=== PATIENT | female | born 1950 | race Caucasian/White ===

== ENCOUNTER 2021-07-02 01:12 | Day surgery (SDC) | payer MEDICARE, SELFPAY ==
[2021-06-29 13:14] VITALS: BMI 21.4
--- NOTE | 2021-06-30 17:17 | PM.HPGS ---
History of Present Illness History of Present Illness Consent: Risks, benefits, and alternatives have been discussed and questions answered. Patient agrees to proceed with procedure. Chief complaint: neoplasm screening Narrative: Dasia Jamil is a 71 year old female referred for colon cancer screening Review of Systems Review of Systems: All systems reviewed & are unremarkable except as noted in HPI and below PMFSH Surgical History Surgical History H/O: hysterectomy Family History Family History Father Cerebrovascular accident, Onset Age: 69 Patient's father is Mother Family history of lung cancer, Onset Age: 75 Grandparent Family history of malignant neoplasm of breast Sibling Family history of malignant neoplasm of ovary Family history of malignant neoplasm of uterus, Onset Age: 60 Social History Social History Smoking packs per day: 1 Smoking cigarettes per day: 20.0 Years smoked: 20 Smoking pack-years: 20.00 Smoking status: Former smoker Tobacco type: cigarettes Second hand tobacco smoke exposure: No Smoking end date: 04/18/86 Alcohol intake: current Drinks per week: 7 Substance use: never Substance use type: does not use Living arrangements: with family Spiritual care concerns: No Meds Home Medications and Allergies Home Medications Medication Instructions Recorded Confirmed Type ascorbic acid (vitamin C) 100 mg 100 mg PO DAILY 08/09/19 07/02/21 History tablet aspirin 81 mg tablet,delayed 81 mg PO DAILY 08/09/19 07/02/21 History release multivit with 1 tablet PO DAILY 08/09/19 07/02/21 History dovovyiq-geku-RU-lutein 8 mg iron-400 mcg-300 mcg tablet quetiapine 25 mg tablet 25 mg PO .hs #90 tablet 12/25/20 07/02/21 Rx bupropion HCl 300 mg 24 hr tablet, 300 mg PO QAM #90 tablet 04/16/21 07/02/21 Rx extended release sertraline 50 mg tablet 50 mg PO DAILY #90 tablet 06/01/21 07/02/21 Rx levothyroxine 112 mcg tablet 112 mcg PO DAILY #90 tablet 06/26/21 07/02/21 Rx Allergies Allergy/AdvReac Type Severity Reaction Status Date / Time Sulfa (Sulfonamide Allergy Mild Unknown Verified 07/02/21 06:21 Antibiotics) Exam Resp: Auscultation: clear to auscultation bilaterally Cardio: Rate: regular rate Rhythm: regular rhythm GI: GI Palp: Yes Soft to palpation and No Tenderness to palpation present (GI) Assessment and Plan Assessment and plan (1) Colon cancer screening: Code(s): Z12.11 - Encounter for screening for malignant neoplasm of colon Status: Acute Assessment and Plan: Colonoscopy with possible biopsy or polypectomy or cautery or injection of substances.
[2021-07-02 06:23] VITALS: BMI 20.9
[2021-07-02] MEDS: LACTATED RINGERS 1,000 ML 150 ML IV CONT (06:36)
[2021-07-02 06:57] VITALS: BP 102/78; PULSE 73; RESP 20; O2SAT 97
--- NOTE | 2021-07-02 06:57 | WPDANESEPPF ---
Anes - Initial Pre Proc Eval Procedure: Operation Date: 07/02/21 07:30 Proposed Procedures p Screening Colonoscopy - Rhett Cotto MD Date/Time: 07/02/21 06:57 Surgeon: Rhett Cotto MD Pre Op Diagnosis: neoplasm screening Patient Data Age: 71 Gender: F Height: 1.65 m Weight: 57.1 kg Allergies Allergy/AdvReac Type Severity Reaction Status Date / Time Sulfa (Sulfonamide Allergy Mild Unknown Verified 07/02/21 06:21 Antibiotics) Home Medications Medication Instructions Recorded Confirmed Type ascorbic acid (vitamin C) 100 mg 100 mg PO DAILY 08/09/19 07/02/21 History tablet aspirin 81 mg tablet,delayed 81 mg PO DAILY 08/09/19 07/02/21 History release multivit with 1 tablet PO DAILY 08/09/19 07/02/21 History hdkevujo-xeei-ZV-lutein 8 mg iron-400 mcg-300 mcg tablet quetiapine 25 mg tablet 25 mg PO .hs #90 tablet 12/25/20 07/02/21 Rx bupropion HCl 300 mg 24 hr tablet, 300 mg PO QAM #90 tablet 04/16/21 07/02/21 Rx extended release sertraline 50 mg tablet 50 mg PO DAILY #90 tablet 06/01/21 07/02/21 Rx levothyroxine 112 mcg tablet 112 mcg PO DAILY #90 tablet 06/26/21 07/02/21 Rx Patient hx anesthesia problems: none Family hx anesthesia problems: none Results Review: All pre-operative results and documents have been reviewed as part of the pre-operative evaluation. [facility] Surgical History Surgical History (Updated 07/02/21 @ 07:00 by Eliazar Johnson MD) H/O: hysterectomy Family History Family History Father Cerebrovascular accident, Onset Age: 69 Patient's father is Mother Family history of lung cancer, Onset Age: 75 Grandparent Family history of malignant neoplasm of breast Sibling Family history of malignant neoplasm of ovary Family history of malignant neoplasm of uterus, Onset Age: 60 Social History Social History Smoking packs per day: 1 Smoking cigarettes per day: 20.0 Years smoked: 20 Smoking pack-years: 20.00 Smoking status: Former smoker Tobacco type: cigarettes Second hand tobacco smoke exposure: No Smoking end date: 04/18/86 Alcohol intake: current Drinks per week: 7 Substance use: never Substance use type: does not use Living arrangements: with family Spiritual care concerns: No Anes - Eval Final PreProcedure Day of Procedure 07/02/21 06:57 Patient weight: normal Heart: regular rate and rhythm Lungs: clear to auscultation Airway: Mallampati scale class II Neurological: alert and oriented Last oral intake: >/= 8 hours ASA classification: II Emergent: no Anesthetic plan: proceed Anesthesia type and monitoring: general GIVS and standard monitoring Results Review: All pre-operative results and documents have been reviewed as part of the pre-operative evaluation. Informed Consent: The patient's anesthetic plan and its attendant risks and benefits were discussed with the patient/family/POA. Questions were solicited and answers provided to the satisfaction of the patient/family/POA.
[2021-07-02 07:52] VITALS: BP 89/43; PULSE 62; RESP 18; O2SAT 99
[2021-07-02 08:02] VITALS: BP 86/44; PULSE 64; RESP 21; O2SAT 100
[2021-07-02 08:12] VITALS: BP 105/58; PULSE 62; RESP 14; O2SAT 100
== END 2021-07-02 08:30 | disposition home or self-care (01) ==
PROVIDERS: PCP Physician Assistant; Visit Provider Internal Medicine Gastroenterology
PROC: 0DJD8ZZ Inspection of Lower Intestinal Tract, Via Natural or Artificial Opening Endoscopic (ICD-10-PCS; CPT 45378; principal; 2021-07-02 07:30)
DX: Z12.11 Encounter for screening for malignant neoplasm of colon (principal); Z86.010 Personal history of colon polyps; Z79.82 Long term (current) use of aspirin; Z87.891 Personal history of nicotine dependence
CPT/HCPCS: G0105; J2704; J7120

== ENCOUNTER 2021-09-03 13:52 | Outpatient (CLI) | payer MEDICARE, SELFPAY ==
--- NOTE | ~2021-09-03 | MM_ITS ---
EXAMINATION: MM diagnostic heri RT w mehnaz HISTORY: Possible right breast architectural distortion on screening mammogram TECHNIQUE: Additional 3-D tomosynthesis images of the right breast were performed and synthetic 2-D i mages were generated. CAD analysis was submitted and interpreted. COMPARISON: 08/19/2021, 06/19/2020, 08/17/2018 BREAST PARENCHYMAL COMPOSITION: There are scattered areas of fibroglandular density. FINDINGS: There is a return to baseline fibroglandular appearance with spot compression of the right breast in the area questioned on screening mammogram. There is no mass, calcification, or architectur al distortion. IMPRESSION: 1. No mammographic evidence of malignancy. 2. Recommend routine screening mammography in one year. BI-RADS Category 1: Negative Reviewed, dictated and finalized at location A.
== END 2021-09-03 13:53 | disposition home or self-care (01) ==
PROVIDERS: PCP Physician Assistant; Visit Provider Internal Medicine
DX: R92.8 Other abnormal and inconclusive findings on diagnostic imaging of breast (principal)
CPT/HCPCS: 77061; 77065; G0279

== ENCOUNTER 2022-04-20 14:10 | Outpatient (CLI) | payer MEDICARE, SELFPAY ==
--- NOTE | ~2022-04-20 | XR_ITS ---
Clinical Indication: Cough PA and lateral views of the chest: Comparison: 03/21/2019 Findings: The lungs are clear, without evidence of focal consolidation or pleural effusion. Cardiome diastinal silhouette is within normal limits. Bones and soft tissues are unremarkable. Impression: Normal chest. Reviewed, dictated and finalized at [facility]. 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
== END 2022-04-20 14:11 | disposition home or self-care (01) ==
PROVIDERS: PCP Physician Assistant; Visit Provider Physician Assistant
DX: R05.9 Cough, unspecified (principal)
CPT/HCPCS: 71046

== ENCOUNTER 2023-01-17 13:52 | Outpatient (NON) | payer MEDICARE, SELFPAY | END 2023-01-17 13:53 | disposition home or self-care (01) | LOC: ANHLAB 13:52 | PROVIDERS: PCP Physician Assistant; Visit Provider Nurse Practitioner | DX: C44.722 Squamous cell carcinoma of skin of right lower limb, including hip (principal) | CPT/HCPCS: 86923; 88305; 88331 ==

== ENCOUNTER 2023-06-21 10:48 | Outpatient (CLI) | payer MEDICARE, SELFPAY ==
[2023-06-21 13:41] LABS: Free T4 Free Thyroxine 1.16 ng/mL (0.78-2.19)
[2023-06-21 13:48] LABS: Thyroid Stimulating Hormone 0.016 uIU/mL (0.465-4.680); Total Triiodothyronine (T3) 0.97 NG/ML (0.97-1.69)
== END 2023-06-21 10:49 | disposition home or self-care (01) ==
LOC: ANHGOSHLAB 10:50
PROVIDERS: PCP Emergency Medicine; Visit Provider Emergency Medicine
DX: E03.9 Hypothyroidism, unspecified (principal); F32.9 Major depressive disorder, single episode, unspecified
CPT/HCPCS: 36415; 84439; 84443; 84480

== ENCOUNTER 2023-09-21 08:42 | Outpatient (CLI) | payer MEDICARE, SELFPAY ==
[2023-09-21 13:28] LABS: Thyroid Stimulating Hormone 0.139 uIU/mL (0.465-4.680); Total Triiodothyronine (T3) 0.85 NG/ML (0.97-1.69)
[2023-09-21 13:30] LABS: Free T4 Free Thyroxine 1.53 ng/mL (0.78-2.19)
== END 2023-09-21 08:43 | disposition home or self-care (01) ==
PROVIDERS: PCP Emergency Medicine; Visit Provider Emergency Medicine
DX: E03.9 Hypothyroidism, unspecified (principal); F32.9 Major depressive disorder, single episode, unspecified
CPT/HCPCS: 36415; 84439; 84443; 84480

== ENCOUNTER 2023-09-22 14:37 | Outpatient (CLI) | payer MEDICARE, SELFPAY ==
--- NOTE | ~2023-09-22 | XR_ITS ---
AP and lateral views of the left hip Clinical history: Pain Findings: No acute fracture or dislocation is seen. Osseous alignment is anatomic. Left hip joint is preserved. Soft tissues are unremarkable. Impression: No significant abnormality is seen. Reviewed, dictated and finalized at location M. Impression: No significant abnormality is seen.
== END 2023-09-22 14:38 ==
PROVIDERS: PCP Emergency Medicine; Visit Provider Emergency Medicine
DX: M25.559 Pain in unspecified hip (principal)
CPT/HCPCS: 73502

== ENCOUNTER 2023-09-23 12:59 | Outpatient (CLI) | payer MEDICARE, SELFPAY ==
[2023-09-25 03:54] LABS: Prolactin 4.5 ng/mL
== END 2023-09-23 13:00 | disposition home or self-care (01) ==
LOC: ANHLAB 13:03
PROVIDERS: PCP Emergency Medicine; Visit Provider Emergency Medicine
DX: E03.8 Other specified hypothyroidism (principal)
CPT/HCPCS: 36415; 84146

== ENCOUNTER 2023-09-30 15:37 | Outpatient (CLI) | payer MEDICARE, SELFPAY ==
--- NOTE | ~2023-09-30 | MR_ITS ---
EXAMINATION: MR brain/brain stem wo con DATE: 09/30/2023 16:33 INDICATION: Other specified hypothyroidism. TECHNIQUE: Magnetic resonance imaging (MRI) of the brain and brainstem was performed without intraven ous contrast. COMPARISON: None. FINDINGS: There are scattered areas of nonspecific increased T2-weighted signal intensity in the cere bral white matter, which is within normal limits for the patient's age. There is no intracranial hemo rrhage, acute infarction, or abnormal intracranial mass lesion. The ventricles are normal in size. Th ere is a mucous retention cyst in right maxillary sinus. The mastoid air cells are normal. There are likely changes of ocular lens replacement surgeries. IMPRESSION: 1. Normal aging brain. Reviewed, dictated and finalized at location E. IMPRESSION: 1. Normal aging brain.
== END 2023-09-30 15:38 | disposition home or self-care (01) ==
LOC: ANHIMG 15:37
PROVIDERS: PCP Emergency Medicine; Visit Provider Emergency Medicine
DX: E03.8 Other specified hypothyroidism (principal)
CPT/HCPCS: 70551

== ENCOUNTER 2025-03-08 08:43 | Outpatient (CLI) | payer MEDICARE, SELFPAY ==
--- NOTE | ~2025-03-08 | DEXA_ITS ---
Bone Density Report Name: TODD KEENAN Age: 75 Sex: Female Ethnicity: White Date of : 1950 Indication: postmenopausal; screening for osteoporosis; hysterectomy; Referring Provider: AMELIE, CHIQUI Calixto Study: Bone densitometry was performed. Exam Date: March 08, 2025 Accession number: [id number] Bone Density: Region BMD T-score Z-score Classification AP Spine(L1-L4) 0.838 -1.9 0.6 Osteopenia Femoral Neck (Left) 0.520 -3.0 -0.8 Osteoporosis Total Hip (Left) 0.686 -2.1 -0.3 Osteopenia Femoral Neck (Right) 0.517 -3.0 -0.9 Osteoporosis Total Hip (Right) 0.626 -2.6 -0.7 Osteoporosis Total Hip Mean 0.656 -2.4 -0.5 Osteopenia World Health Organization criteria for BMD impression classify patients as: Normal (T-score at or above -1.0), Osteopenia (T-score between -1.0 and -2.5), or Osteoporosis (T-score at or below -2.5). 10-year Fracture Risk: FRAX not reported because: Some T-score for Spine Total or Hip Total or Femoral Neck at or below -2.5 Clinical Information Provided by Patient: Has used the following medications: Calcium Has the following medical conditions: Hysterectomy Patient maximum height was 66 Menopause Age: 34 Does not regularly consume dairy products Drinks caffeinated beverages Onset of menses at age 11 Number of children 2 Impression: The patient has osteoporosis, based on the Left Femoral Neck T-score. Discussion: INCREASED RISK OF FRACTURE. BONE DENSITY IS UNDESIRABLY LOW AT ONE OR MORE SKELETAL SITES, CONSISTENT WITH POSTMENOPAUSAL OSTEOPOROSIS. This patient's lowest T-score meets the World Health Organization's (WHO) criteria for osteoporosis at one or more sites (T-score -2.5 or below). In untreated patients, the risk of osteoporotic fracture increases approximately two-fold for each 1.0 SD decrease in T-score. Low bone density is not the only risk factor for fracture; also consider factors such as patient's age, frailty or poor health, risk of falling, risk of injury, previous osteoporotic fracture, family history of osteoporosis, cigarette smoking, low body weight, etc. Not everyone with low bone mineral density has osteoporosis; osteomalacia and other metabolic bone disorders should also be considered. Patients who have osteoporosis should be evaluated for specific diseases and conditions (secondary causes) that may cause or contribute to bone loss. The [place] [employer]ocr[employer] (AACE) and National Osteoporosis Foundation (NOF) recommend pharmacologic intervention for all postmenopausal women whose T-score is in this range. The patient should follow a healthful lifestyle (good nutrition with adequate calcium and vitamin D, and appropriate weight-bearing exercise). Follow-Up: Consider a repeat BMD and Vertebral Fracture Assessment (VFA) exam in 2 years or sooner if medically necessary, to reassess this patient's status. Reported by: BECKY on 03/08/2025 9:28:00 AM. Reviewed, dictated and finalized at location A.
== END 2025-03-08 08:44 | disposition home or self-care (01) ==
PROVIDERS: PCP Student in an Organized Health Care Education/Training Program; Visit Provider Student in an Organized Health Care Education/Training Program
DX: M81.0 Age-related osteoporosis without current pathological fracture (principal); M85.89 Other specified disorders of bone density and structure, multiple sites; Z78.0 Asymptomatic menopausal state
CPT/HCPCS: 77080